=== PATIENT | female | born 1970 | race Caucasian/White ===

== ENCOUNTER 2021-08-25 21:53 | Outpatient (CLI) | payer SELFPAY ==
[2021-08-29 13:36] LABS: TB Interpretation Negative (Negative)
== END 2021-08-25 21:54 | disposition home or self-care (01) ==
LOC: LBO 21:55
PROVIDERS: Visit Provider Nurse Practitioner Family
DX: Z02.1 Encounter for pre-employment examination (principal); Z11.1 Encounter for screening for respiratory tuberculosis
CPT/HCPCS: 36415; 86480